=== PATIENT | male | born 1965 | race Caucasian/White ===

== ENCOUNTER → 2016-11-17 | Outpatient (CLI) | payer MEDICAID ==
[~2016-11-17] MED LIST: MAGN100T2 PO; TUMERIC PO; VITA100018 PO; ZINC50TA2 PO
[2016-11-17 11:29] LABS: AUTOMATED NEUTROPHIL # 2.9 TH/MM3 (1.8-7.7); BASOPHIL # 0.1 TH/MM3 (0-0.2); BASOPHIL % 1.5 % (0.0-2.0); EOSINOPHIL # 0.1 TH/MM3 (0-0.4); HEMATOCRIT 49.1 % (39.0-51.0); HEMO FLAGS DIFF FINAL; LYMPH % 29.3 % (9.0-44.0); LYMPHOCYTE # 1.4 TH/MM3 (1.0-4.8); MEAN CELL VOLUME 91.3 FL (80.0-100.0); MEAN CORPUSCULAR HEMOGLOBIN 29.9 PG (27.0-34.0); MEAN CORPUSCULAR HGB CONC 32.7 % (32.0-36.0); NEUT % 62.2 % (16.0-70.0); PLATELET COUNT 189 TH/MM3 (150-450); RED BLOOD COUNT 5.38 MIL/MM3 (4.50-5.90); RED CELL DISTRIBUTION WIDTH 12.3 % (11.6-17.2); WHITE BLOOD COUNT 4.7 TH/MM3 (4.0-11.0)
--- NOTE | 2016-11-18 08:39 | EKG ---
Date Performed: 11/17/2016 Time Performed: 11:20:57 PTAGE: 51 years EKG: SINUS BRADYCARDIA POSSIBLE RIGHT VENTRICULAR CONDUCTION DELAY BORDERLINE ECG NO PREVIOUS TRACING DOCTOR: Phil Chong Interpretating Date/Time 11/18/2016 08:33:21
== END ==
LOC: PHPRE 10:54
PROVIDERS: ATTEND Orthopaedic Surgery
DX: Z01.812 Encounter for preprocedural laboratory examination (principal); Z01.810 Encounter for preprocedural cardiovascular examination; R00.1 Bradycardia, unspecified
CPT/HCPCS: 36415; 85025; 93005

== ENCOUNTER → 2016-11-20 | Day surgery (SDC) | payer MEDICAID ==
[~2016-11-20] VITALS: Ht 172.7 cm; Wt 86.5 kg
[~2016-11-20] MED LIST changes: +ACETAMINOPHEN/HYDROcodone 325 MG/5 MG TAB PO PRN; +BUPIVACAINE/EPINEPHRINE 0.25% PF 30 ML VIAL ONE; +BUPIVACAINE/EPINEPHRINE 0.5% PF 10 ML VIAL ONE; +CHLORHEXIDINE GLUCONATE 2 % 1 PACK (2 CLOTHS) TOPICAL PRN; +CHLORHEXIDINE GLUCONATE 4% SOLN 120 ML BTL TOPICAL SCH; +FAMOTIDINE 20 MG/2 ML VIAL ONE; +INSULIN HUMAN REGULAR 1,000 UNITS/10 ML VIAL SQ PRN; +KETOROLAC TROMETHAMINE 30 MG/ML (IVP) VIAL IM PRN; +LACTATED RINGER'S 1000 ML IV PRN; +METOPROLOL TARTRATE 25 MG TAB PO PRN; +MIDAZOLAM HCL 5 MG/ML VIAL (1 ML) ONE; +ONDANSETRON HCL 4 MG/2 ML VIAL IV PUSH ONE; +ONDANSETRON HCL 4 MG/2 ML VIAL IV PUSH PRN; +POVIDONE IODINE 5% (ANTISEPSIS KIT) 4 APPLICATIONS EACH NARE PRN; +PROPOFOL 200 MG/20 ML AMP IV ONE; +SODIUM CHLORID 0.9% 500 ML IV PRN; +VANCOMYCIN 1000 MG/NS 250 ML (for <70 kg) IV SCH; +ceFAZolin 2 GM PREMIX 50 ML IV SCH
[2016-11-20 10:26] VITALS: BP 130/80; PULSE 57; RESP 18; TEMP 97.9; O2SAT 96
[2016-11-20 10:30] VITALS: PULSE 57
[2016-11-20 14:40] VITALS: BP 124/73; PULSE 74; RESP 16; TEMP 97.5; O2SAT 97
--- NOTE | 2016-11-22 09:40 | MP ---
cc: LEONARDO MOSLEY M.D. DATE OF SURGERY: 11/20/2016 PREOPERATIVE DIAGNOSIS: Impingement syndrome of the right shoulder with possible rotator cuff tear. POSTOPERATIVE DIAGNOSIS: Impingement syndrome of the right shoulder with possible tearing of the rotator cuff. PROCEDURE: Anterior decompression with repair of rotator cuff. SURGEON Dr. Leonardo Mosley. DETAILS OF PROCEDURE: The patient was placed on the operating room table in supine position and adequate general anesthesia was administered by the anesthesiologist, after a nerve block was carried out in the holding unit. The patient was then transferred into the modified beach-chair position and well-padded. The shoulder was then prepped and draped in the usual sterile fashion. A time out was then called and the patient's name, location and procedure were all fully verified. A one inch incision was made over the acromial process and taken down through the subcutaneous tissues and bleeding points were electrocauterized. We did infiltrate the subcutaneous tissues with several cc's of 0.5% Marcaine with epinephrine. Dissection was carried down to the fascia which was incised exposing the deltoid insertion along the anterior border of the acromial process. This was then transected using electrocautery. The underlying bursal tissue was partially visualized at this stage and excised along with the thickened tight coracoacromial ligament. An anterior decompression with a partial acromioplasty of the acromial process was carried out. The rest of the rotator cuff was now visualized by rotation of the shoulder. There appeared to be a divot with partial tearing of the inter-substance fibers at the area of the supraspinatus insertion into the area of the greater tuberosity. The area was then debrided and repaired with an interrupted suture of #2 Tycron. A water tightening was carried out. Some additional acromioplasty was then performed. Thorough irrigation was then performed as well. The deltoid muscle was repaired with #1 Tycron. Subcutaneous tissue was closed with running simple 3-0 Vicryl and skin edges approximated with a running subcuticular 4-0 Vicryl. Skin edges were approximated with also Steri-Strips and a dressing was applied. Sponge count, needle counts, instrument counts were reported correct x2. The estimated blood loss was minimal. The patient was transferred in satisfactory and stable condition. MD DIOGO Lozano/MICHEL /12:19 PM /9:08 AM
== END | disposition home or self-care (01) ==
LOC: PHSDC 09:18 → EDUNIT# 13:00
PROVIDERS: ATTEND Orthopaedic Surgery
DX: M75.101 Unspecified rotator cuff tear or rupture of right shoulder, not specified as traumatic (principal); M75.41 Impingement syndrome of right shoulder; Z87.891 Personal history of nicotine dependence
CPT/HCPCS: 01610; 23130; 23412; J0690; J2250; J2405; J3370; J7050